=== PATIENT | female | born 2005 ===

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

== ENCOUNTER 2023-11-21 13:01 | Outpatient (REF) | payer OTHER, SELFPAY ==
[2023-11-21 16:47] LABS: Folate 9.5 ng/mL (> or = 4.0); Vitamin B12 510 pg/mL (200-900)
[2023-11-25 16:08] LABS: Vitamin D 25-OH, D2 <4 ng/mL; Vitamin D 25-OH, D3 25 ng/mL; Vitamin D 25-OH, Total 25 ng/mL (30-100)
== END 2023-11-21 13:02 | disposition home or self-care (01) ==
LOC: HO.LAB 13:01
PROVIDERS: PCP Pediatrics; Visit Provider Nurse Practitioner Family
DX: R19.7 Diarrhea, unspecified (principal); E55.9 Vitamin D deficiency, unspecified; R11.0 Nausea; R10.13 Epigastric pain; K21.9 Gastro-esophageal reflux disease without esophagitis; R63.6 Underweight
CPT/HCPCS: 36415; 82306; 82607; 82746; 99202

== ENCOUNTER 2023-11-21 13:01 | Outpatient (AMB) | payer OTHER, SELFPAY ==
--- NOTE | 2023-11-21 13:05 | MHC.OFFVIS ---
Vital Signs 11/21/23 13:09 Height 5 ft 2.5 in Weight 99 lb 3.328 oz BMI 17.9 BP 102/59 L Blood Pressure Location Lt brachial Position Sitting Pulse 72 Intake Visit Reasons: unintentional weight loss, nausea and vomiting Intake Note: Vanessa presents in the office as a new patient for weight loss and N/V. CC: N/V, Troubles with weight loss. Loss of appetite at times. No blood when she has a BM. Sometimes she has pains in her stomach - epigastric regions - state at times she will wake up with the pains. Optical Brightener Maker Helper Required: No Allergies No Known Allergies Allergy (Unverified 11/21/23 13:06) HPI HPI unintentional weight loss, nausea and vomiting : Details: 18-year-old female with no significant past medical history is here today for initial consultation. Patient has been dealing with epigastric pain and discomfort for sometimes. Seen in 2018 for epigastric pain and discomfort in the ER. Many times patient reports that her pains are worse around when she is about to get her menses. Patient's quality assurance manager did extensive workup that included transglutaminase, hormone levels, lipase, liver profile. Patient does report pain for menstruation. Patient states that she is having epigastric pain postprandially and does not have much appetite. Patient is afraid to eat to prevent her from getting pain. Patient reports that she is moving her bowels without any issues, however sometimes patient feels like she has to go to the bathroom few times a day before she empties completely. Denies any melena, hematochezia, unintentional weight loss or ribbon like stools. Patient reports dyspepsia without dysphagia or odynophagia. Review of Systems Const Denies weight gain and Reports weight loss ENT Reports no additional complaints, Denies dysphagia and Denies odynophagia Card Reports no additional complaints Resp Reports no additional complaints GI Reports abdominal pain (Epigastric), Denies belching, Denies melena, Reports bloating (Occasional), Denies change in bowel habits, Reports tenesmus, Denies dysphagia, Denies excessive flatus, Denies dyspepsia, Reports heartburn, Denies diarrhea, Denies loose stools, Reports nausea, Denies odynophagia and Denies vomiting Reports no additional complaints Musc Reports no additional complaints Neuro Reports no additional complaints Psych Reports no additional complaints Endo Reports no additional complaints Physical Exam Vital Signs: Last Vital Signs Pulse 72 11/21/23 13:09 BP 102/59 L 11/21/23 13:09 BMI result Body Mass Index 17.9 Const General: healthy appearing and no acute distress Nutritional Appearance: underweight Orientation/consciousness: patient oriented x3 Resp Effort & Inspection: normal respiratory effort, able to speak in complete sentences, no tracheal deviation and symmetric chest movement Auscultation: clear to auscultation bilaterally Cardio Rate: regular rate GI Inspection: Yes normal to inspection and No distended Palpation (GI): Soft to palpation, not firm, nontender and No hepatosplenomegaly present Auscultation: normal bowel sounds General: Yes no CVA tenderness Back/Spine/Pelvis Back: no CVA tenderness Skin General skin exam: elasticity normal, turgor normal and dry skin Neuro General: patient oriented x3 Psych Appearance: grossly normal Mental Status: mental status grossly normal Assessment & Plan Assessment & Plan (1) Nausea: Code(s): R11.0 - Nausea (2) Postprandial epigastric pain: Code(s): R10.13 - Epigastric pain (3) GERD (gastroesophageal reflux disease): Code(s): K21.9 - Gastro-esophageal reflux disease without esophagitis Qualifiers: Esophagitis presence: esophagitis presence not specified Qualified Code(s): K21.9 - Gastro-esophageal reflux disease without esophagitis (4) Underweight: Code(s): R63.6 - Underweight Plan Will start patient on omeprazole 20 mg daily. Discussed with patient avoiding dietary triggers. Eating food that is blend. Making sure that she is moving her bowels. Increase fluid intake and activity. Increase fiber intake. Patient was encouraged to try protein shakes couple times today. Preferably lactose free. Increase calorie intake and protein intake. I will see patient in 6 weeks, sooner on as needed basis. She is agreeable to this plan and verbalizes understanding of instructions. She was given the opportunity to ask questions and all questions answered. Thank you for allowing me to participate in her care Orders: Orders Vitamin B12 and Folate 11/21/23 R19.7 - Diarrhea, unspecified Vitamin D 25-OH (D2 and D3) 11/21/23 E55.9 - Vitamin D deficiency, unspecified Medications: New omeprazole 20 mg PO DAILY 30 caps 3RF K21.9 - Gastro-esophageal reflux disease without esophagitis Coding Level of Care Code New Pt Level 4 (90079) Diagnoses Nausea R11.0 Postprandial epigastric pain R10.13 Gastroesophageal reflux disease, unspecified whether esophagitis present K21.9 Esophagitis presence: esophagitis presence not specified Underweight R63.6 Time Spent (min) 45 Comment 30 minutes spent with patient and additional 15 minutes spent reviewing her records
[2023-11-21 13:09] VITALS: BP 102/59; PULSE 72; BMI 17.9
== END 2023-11-21 13:36 | disposition home or self-care (01) ==
PROVIDERS: PCP Pediatrics; Visit Provider Nurse Practitioner Family
DX: R11.0 Nausea (principal); R10.13 Epigastric pain; K21.9 Gastro-esophageal reflux disease without esophagitis; R63.6 Underweight
CPT/HCPCS: 99204

== ENCOUNTER 2024-01-02 12:55 | Outpatient (AMB) | payer OTHER, SELFPAY ==
[2024-01-02 12:59] VITALS: BP 104/64; PULSE 73; BMI 18.5
--- NOTE | 2024-01-02 12:59 | A.OFFVIS_ITS ---
Vital Signs 01/02/24 12:59 Height 5 ft 2.5 in Weight 102 lb 11.767 oz BMI 18.5 BP 104/64 Blood Pressure Location Lt brachial Position Sitting Pulse 73 Pulse Source Pulse Oximeter Intake Visit Reasons: 6 week follow up Intake Note: Vanessa returns to in office 6 weeks follow up of GERD and labs. CC: Patient states I'm doing good and denies having N/V, abdominal pain. She states she has been eating well. Denies other GI concerns today. Timber Watchman Required: No Accompanied by: Mother Allergies No Known Allergies Allergy (Verified 01/02/24 13:03) HPI HPI 6 week follow up: Details: LAST VISIT: Nausea Postprandial epigastric pain GERD (gastroesophageal reflux disease) Underweight Plan Will start patient on omeprazole 20 mg daily. Discussed with patient avoiding dietary triggers. Eating food that is blend. Making sure that she is moving her bowels. Increase fluid intake and activity. Increase fiber intake. Patient was encouraged to try protein shakes couple times today. Preferably lactose free. Increase calorie intake and protein intake. I will see patient in 6 weeks, sooner on as needed basis. She is agreeable to this plan and verbalizes understanding of instructions. She was given the opportunity to ask questions and all questions answered. ? Thank you for allowing me to participate in her care Orders Orders Vitamin B12 and Folate 11/21/23 R19.7 Vitamin D 25-OH (D2 and D3) 11/21/23 E55.9 Medications New omeprazole 20 mg PO DAILY 30 caps 3RF K21.9 TODAY'S VISIT: Patient is here today for follow-up. Patient is accompanied by her mother. Patient reports that she has been feeling well, denies any GI concerning sympt oms. Currently has good appetite. Takes omeprazole every morning and states that her symptoms are suppressed. Patient denies any nausea or vomiting. Moves her bowels without any issues. Placed on vitamin-D after last visit. Patient reports that she has been eating better. Patient gained 3 lb in the last few weeks. [facility] Surgical History No pertinent past surgical history Social History Alcohol intake: never Patient Tobacco Use Status: Never used Tobacco Use of substances other than those prescribed or required for medical reasons: No Review of Systems Const Denies weight gain and Denies weight loss ENT Reports no additional complaints, Denies dysphagia and Denies odynophagia Card Reports no additional complaints Resp Reports no additional complaints GI Denies abdominal pain, Denies belching, Denies melena, Denies bloating, Denies change in bowel habits, Denies dysphagia, Denies excessive flatus, Denies dyspepsia, Denies heartburn, Denies diarrhea, Denies loose stools, Denies nausea, Denies odynophagia and Denies vomiting Musc Reports no additional complaints Neuro Reports no additional complaints Psych Reports no additional complaints Endo Reports no additional complaints Physical Exam Vital Signs: Last Vital Signs Pulse 73 01/02/24 12:59 BP 104/64 01/02/24 12:59 BMI result Body Mass Index 18.5 Const General: healthy appearing and no acute distress Nutritional Appearance: underweight Orientation/consciousness: patient oriented x3 Resp Effort & Inspection: normal respiratory effort, able to speak in complete sentences, no tracheal deviation and symmetric chest movement Auscultation: clear to auscultation bilaterally Cardio Rate: regular rate GI Inspection: Yes normal to inspection and No distended Palpation (GI): Soft to palpation, not firm, nontender and No hepatosplenomegaly present Auscultation: normal bowel sounds General: Yes no CVA tenderness Back/Spine/Pelvis Back: no CVA tenderness Skin General skin exam: elasticity normal, turgor normal and dry skin Neuro General: patient oriented x3 Psych Appearance: grossly normal Mental Status: mental status grossly normal Results Reviewed Results Reviewed: Laboratory Tests 11/21/23 14:11 Vitamin B12 510 25-OH Vitamin D Total 25 L Folate 9.5 Assessment & Plan Assessment & Plan (1) Nausea: Code(s): R11.0 - Nausea (2) Postprandial epigastric pain: Code(s): R10.13 - Epigastric pain (3) GERD (gastroesophageal reflux disease): Code(s): K21.9 - Gastro-esophageal reflux disease without esophagitis Qualifiers: Esophagitis presence: esophagitis presence not specified Qualified Code(s): K21.9 - Gastro-esophageal reflux disease without esophagitis (4) Underweight: Code(s): R63.6 - Underweight Plan Patient can continue taking vitamin-D low-dose. May take omeprazole for another 2 months. Continue to avoid dietary triggers and late night snacking. Staying upright for minimum 3 hours after meals discussed with patient. High-calorie meals encouraged to help her gain weight. Avoid food that is fried or greasy. Patient will follow-up on as needed basis. If patient will have symptoms that will get worse she will call our office. Both patient and her mother are agreeable to plan of care and verbalizes understanding of instructions. They were given the opportunity to ask questions and all questions answered. Thank you for allowing me to participate in her care Medications: New cholecalciferol (vitamin D3) 25 mcg PO DAILY 30 caps 2RF Refilled omeprazole 20 mg PO DAILY 30 caps 1RF K21.9 - Gastro-esophageal reflux disease without esophagitis Coding Level of Care Code Est Pt Level 3 (12812) Diagnoses Nausea R11.0 Postprandial epigastric pain R10.13 Gastroesophageal reflux disease, unspecified whether esophagitis present K21.9 Esophagitis presence: esophagitis presence not specified Underweight R63.6 Time Spent (min) 25 Comment 15 minutes spent with patient and additional 10 minutes spent reviewing her records
== END 2024-01-02 13:58 | disposition home or self-care (01) ==
PROVIDERS: PCP Pediatrics; Visit Provider Nurse Practitioner Family
DX: R11.0 Nausea (principal); R10.13 Epigastric pain; K21.9 Gastro-esophageal reflux disease without esophagitis; R63.6 Underweight
CPT/HCPCS: 99213

== ENCOUNTER → 2024-01-02 12:55 | Outpatient (BNVA) | payer OTHER, SELFPAY | PROVIDERS: PCP Pediatrics; Visit Provider Nurse Practitioner Family | DX: R11.0 Nausea (principal); R10.13 Epigastric pain; K21.9 Gastro-esophageal reflux disease without esophagitis; R63.6 Underweight | CPT/HCPCS: 99212 ==

== ENCOUNTER 2025-07-03 11:30 | Emergency (ER) | payer OTHER, SELFPAY ==
[2025-07-03 11:49] VITALS: BP 105/67; PULSE 114; RESP 18; TEMP 36.7; O2SAT 99; BMI 18.1
--- NOTE | 2025-07-03 11:54 | ED.GENADULT ---
HPI - General Adult General Chief complaint: Urogenital-Female Stated complaint: ?uti Time Seen by Provider: 07/03/25 14:07 Source: patient Mode of arrival: ambulatory Limitations: no limitations History of Present Illness ED Provider: Jovana Paulino PA-C HPI narrative: Patient is a 19 year old female with no reported medical history presenting to the emergency department today with pain with urination. Patient states that over the last few days she has had pain with urination. Patient denies any vaginal discharge. Patient states that she is on her period so she is bleeding. Patient states that she has no vaginal skin changes or lesions in the vaginal area. Patient denies any other complaints at this time. Related Data Previous Rx's ?Medication ?Instructions ?Recorded omeprazole 20 mg capsule,delayed 20 mg PO DAILY #30 caps 01/02/24 release cholecalciferol (vitamin D3) 25 25 mcg PO DAILY #30 caps 05/01/24 mcg (1,000 unit) capsule cefuroxime axetil 250 mg tablet 500 mg (2 x 250 mg) PO BID 7 days 07/03/25 #28 tabs Allergies Allergy/AdvReac Type Severity Reaction Status Date / Time No Known Allergies Allergy Verified 07/03/25 11:55 Review of Systems Constitutional: Constitutional: Reports as per HPI Eyes: Eyes: Reports as per HPI ENT: Reports as per HPI Cardiovascular: Cardiovascular: Reports as per HPI Respiratory: Respiratory: Reports as per HPI Gastrointestinal: Gastrointestinal: Reports as per HPI Genitourinary: Genitourinary: Reports as per HPI Musculoskeletal: Musculoskeletal: Reports as per HPI Integumentary/Breasts: Skin/Breast: Reports as per HPI Neurologic: Reports as per HPI Psychiatric: Psychiatric: Reports as per HPI Endocrine: Endocrine: Reports as per HPI Hematologic/Lymphatic: Hematologic/Lymphatic: Reports as per HPI Allergic/Immunologic: Allergic/Immunologic: Reports as per HPI [facility] Past Medical History Attestation statement: The following information was validated with the patient. Source: old records reviewed and nursing notes reviewed Surgical History No pertinent past surgical history Social History Social History Alcohol intake: never Patient Tobacco Use Status: Never used Tobacco Advance Directives: No Advance Directives Information Provided: Yes Do you have a plan to hurt others: No Plan Physical Exam ED Vital Signs: Vital Signs - 24 hr 07/03/25 11:49 07/03/25 14:17 Temperature 98.1 F 98.1 F Pulse Rate 114 H 114 H Respiratory Rate 18 18 Blood Pressure 105/67 105/67 Pulse Oximetry 99 99 Oxygen Delivery Method Room Air Room Air BMI result Body Mass Index 18.1 Const General: cooperative, no acute distress, alert and awake Nutritional Appearance: well nourished Orientation/consciousness: patient oriented x3 HENMT Head: Yes normal to inspection and Yes atraumatic Ears: hearing grossly normal bilaterally and external ears normal General nose exam: Normal external nose present, no nasal discharge noted and no epistaxis Face and sinus: Yes normal facial exam, No abrasion and No laceration Mouth: Normal oral and palatal mucosa present, no drooling and no muffled voice Eyes General: appearance normal, both eyes and all related structures Periorbital: periorbital findings normal Eyelids: Yes eyelids normal Conjunctivae: conjunctivae normal Pupils: Equal, round and reactive pupils present EOM: EOMs intact bilaterally Neck Neck: Yes normal visual inspection and Yes full ROM Resp Effort & Inspection: normal respiratory effort and able to speak in complete sentences Neuro General: patient oriented x3, moves all extremities and CN's II-XI intact bilaterally Cranial nerves: Yes Equal, round and reactive pupils present Cognition (Neuro): normal cognition Extrem General: Yes normal to inspection, Yes full ROM and Yes capillary refill normal Psych Appearance: grossly normal Mental Status: mental status grossly normal Affect: normal affect Attitude: cooperative Thought process: Normal thought process present Thought content: Normal thought content present Insight: Good insight present (Psych) Course Course Course Narrative: This is a rapid medical exam performed by Umberto Sparrow NP: Additional HPI, ROS, PE not included below will be deferred to primary provider. Patient is a 19 y/o F presenting with complaint of dysuria for a few days. Also has her period currently. Reports flank pain but states she usually gets this with her period. Plan: labs, UA Medical Decision Making Medical Decision Making MDM Narrative: Patient is a 19 year old female with no reported medical history presenting to the emergency department today with pain with urination. Patient's physical exam was as noted in the physical exam portion of this note. Patient's blood work was unremarkable. Patient's urine showed evidence of UTI - given her symptoms, will initiate treatment. I explained my physical exam findings as well as all test results to the patient. I answered all questions asked by the patient. I stressed the importance of the patient taking her medication as directed (either prescribed or as the over the counter packaging recommends). I stressed the importance of the patient following up with her primary care provider. I stressed the importance of the patient returning to the emergency department immediately if her symptoms were to worsen or if she were to develop any dizziness, shortness of breath, difficulty breathing, chest pain, blurry vision, loss of vision, nausea, vomiting, abdominal pain, fever, chills, back pain, or any other complaints. Patient verbalized agreement and understanding with this treatment plan and discharge. Differential Diagnosis Differential Diagnoses: The differential diagnosis associated with the presentation includes UTI Dysuria Admission/Observation Consideration of admission/observation: Escalation of care including admission/observation considered Patient would have been admitted to the hospital had her work up had any findings where hospital admission was appropriate and her clinical presentation warranted hospital admission. Lab Data [facility] Lab Attestation statement: I reviewed the patient's lab results. My interpretation of these results are in the [facility] Rationale portion of this note. 07/03/25 12:01 07/03/25 12:01 Labs: Lab Results 07/03/25 Range/Units 12:01 WBC 11.1 H (4.8-10.8) X10*3/uL RBC 4.44 (4.20-5.50) X10*6/uL Hgb 13.9 (12.0-16.0) g/dl Hct 40.5 (37.0-47.0) % MCV 91.2 (80.0-98.0) fL MCH 31.3 (27.0-33.0) pg MCHC 34.3 (31.0-35.0) g/dl RDW 12.1 (11.0-16.0) % Plt Count 290 (160-400) X10*3/uL MPV 9.4 (9.4-12.3) fL Immature Gran % (Auto) 0.3 (0.0-0.4) % Neut % (Auto) 84.2 H (45-73) % Lymph % (Auto) 9.9 L (20-40) % [place] % (Auto) 5.1 (2-11) % Eos % (Auto) 0.3 (0-4) % Baso % (Auto) 0.2 (0-2) % Lymph # (Auto) 1.1 L (1.2-4.9) X10*3/uL [place] # (Auto) 0.6 (0.1-1.2) X10*3/uL Eos # (Auto) 0.0 (0.0-0.4) X10*3/uL Baso # (Auto) 0.0 (0.0-0.2) X10*3/uL Abs Immat Gran (auto) 0.03 (0.00-0.03) X10*3/uL Absolute Neuts (auto) 9.4 H (2.0-8.3) x10*3/uL Absolute Nucleated RBC 0.000 (0.0-0.012) X10*3/uL Nucleated RBC % (auto) 0.0 (0.0-0.2) /100WBC Sodium 139 (135-145) mmol/L Potassium 3.6 (3.3-5.1) mmol/L Chloride 107 (96-108) mmol/L Carbon Dioxide 24 (22-29) mmol/L Anion Gap 12 (12-20) BUN 10 (9-16) mg/dL Creatinine 0.72 (0.5-1.4) mg/dL Estim Creat Clear Calc 90.3 Estimated GFR > 60 Random Glucose 102 (60-115) mg/dL Calcium 9.4 (8.4-10.2) mg/dL Total Bilirubin 1.6 H (0.0-1.0) mg/dL AST 24 (5-31) U/L ALT 15 (0-31) U/L Alkaline Phosphatase 64 (39-117) U/L Total Protein 7.5 (6.5-8.0) g/dL Albumin 4.9 (3.5-5.0) g/dL Beta HCG, Quant < 2 mIU/mL Urine Color Light brown Urine Appearance Turbid Urine pH 6.0 (5.0-9.0) Ur Specific [place] 1.025 (1.005-1.025) Urine Protein 300 (3+) H (Neg-Trace) mg/dL Urine Glucose (UA) Negative (Negative) mg/dL Urine Ketones Negative (Negative) mg/dL Urine Blood Large (3+) H (Negative) Urine Nitrite Negative (Negative) Ur Leukocyte Esterase Moderate (2+) H (Negative) Urine RBC >20 H (0-2) /HPF Urine WBC >50 H (0-5) /HPF Ur Squamous Epith Cells 0-2 (0-2) /HPF Urine Bacteria Trace (None Seen) Hyaline Casts 3-5 (0-2) /LPF Prescription Management I considered prescription management with: Antibiotic (patient prescribed an antibiotic for UTI) Discharge Plan Discharge Clinical Impression: Urinary tract infection Patient Disposition: Home, Self-Care Instructions: Urinary Tract Infection in Women (DC) Additional Instructions: Your urine appears to be infected. Take your antibiotic as prescribed. IF you are prescribed home medications and/or you are taking over the counter medications at home - it is very important you continue to do so as prescribed / directed unless told otherwise by a healthcare provider. Follow up with your primary care provider. Do your best to stay well hydrated and rest. Return to the emergency department immediately if your symptoms worsen or if you develop any numbness, tingling, dizziness, shortness of breath, difficulty breathing, chest pain, blurry vision, loss of vision, nausea, vomiting, abdominal pain, fever, chills, back pain, or any other complaints. If you do not have a primary care provider - call any of the below numbers to establish and follow up with a primary care provider. [facility] [place] Primary Care ([place]) [phone] [place] [address], [address] [facility] [place] Primary Care ([address] [place]) [phone] [place] [address], [address] [facility], [address] [facility] [place] Primary Care ([address] [place]) [phone] [place] [address], [address] [facility], [address] [facility] [place] Primary Care ([place]) [phone] [place] [address] 2 [facility], [address] [facility] [place] Family Medicine [phone] [address] [facility], [address] Please see the information below about our Patient Portal. If you are not yet enrolled in the [facility] Patient Portal, you will receive an enrollment email invitation following your visit to any [facility] [place] [place] care setting. You may also self-enroll in the Patient Portal by visiting our website: [email or web address] The following information is required to access the Patient Portal: - Your [facility] [place] [place] Medical Record Number - Your personal home email address (must match what is in your electronic medical record, Registration staff can assist with this) - Name - Date of Capabilities of the Patient Portal: - Message some providers - View upcoming appointments - Access your health summary, medical history, and visit history - View current conditions and allergies - View procedure and lab results - View your medications, including guidelines, side effects, and precautions - Complete pre-appointment questionnaires requested by your provider - Ready summary reports of your office visits and procedures To access the Patient Portal Mobile [employer], follow these directions: - Search [employer] in the [employer] Store or [employer] Store - Download the [employer]rie - Search for [facility] - Enter your login/password Prescriptions: New cefuroxime axetil 250 mg tablet 500 mg PO BID 7 Days Qty: 28 0RF No Action cholecalciferol (vitamin D3) 25 mcg (1,000 unit) capsule 25 mcg PO DAILY Qty: 30 2RF omeprazole 20 mg capsule,delayed release(DR/EC) 20 mg PO DAILY Qty: 30 1RF Interventions: ED Discharge Assessment Last Done: 07/03/25 14:17 Discharge Date/Time: 07/03/25 14:17 Print Language: Maori
[2025-07-03 12:11] LABS: MANUAL DIFF FLAG NO
[2025-07-03 12:15] LABS: Appearance Urine Turbid; Glucose Urine UA Negative (Negative); PH 6.0 (5.0-9.0); Specific Gravity - Urine 1.025 (1.005-1.025); UMIC TRIGGER UACC YES
[2025-07-03 12:17] LABS: Hematocrit 40.5 % (37.0-47.0); Hemoglobin 13.9 g/dl (12.0-16.0); Imm Gran Abs Auto 0.03 X10*3/uL (0.00-0.03); Imm Gran Pct Auto 0.3 % (0.0-0.4); Lymphocytes Absolute Auto 1.1 X10*3/uL (1.2-4.9); Mean Corpuscular HGB Conc 34.3 g/dl (31.0-35.0); Mean Corpuscular Hemoglobin 31.3 pg (27.0-33.0); Mean Corpuscular Volume 91.2 fL (80.0-98.0); NRBC Abs Auto 0.000 X10*3/uL (0.0-0.012); NRBC Pct Auto 0.0 /100WBC (0.0-0.2); Platelet Count 290 X10*3/uL (160-400); Red Blood Count 4.44 X10*6/uL (4.20-5.50); UACC Culture Trigger YES; White Blood Count 11.1 X10*3/uL (4.8-10.8)
[2025-07-03 12:36] LABS: Alanine Aminotransferase 15 U/L (0-31); Albumin Level 4.9 g/dL (3.5-5.0); Alkaline Phosphatase 64 U/L (39-117); Anion Gap 12 (12-20); Aspartate Amino Transferase 24 U/L (5-31); Blood Urea Nitrogen 10 mg/dL (9-16); Calcium 9.4 mg/dL (8.4-10.2); Carbon Dioxide 24 mmol/L (22-29); Chloride 107 mmol/L (96-108); Creatinine Clr Calc Pharmacy 90.3; Estimated Glomerular Filt Rate > 60; Potassium 3.6 mmol/L (3.3-5.1); Sodium 139 mmol/L (135-145); Total Protein 7.5 g/dL (6.5-8.0)
[2025-07-03 14:17] VITALS: BP 105/67; PULSE 114; RESP 18; TEMP 36.7; O2SAT 99
--- OUTSIDE RECORDS SUMMARY | 2025-07-03 18:56 | XMS_ITS | Encounter Summary ---
Author Organization [facility] Address [address] [place] [address] Phone Care Team Providers Care Comb Tender Name Role Phone Gisselle Valente MD Primary Care Provider Encounter Details Date Type Department Care Team (Late st Contact Info) Description 03/21/[address] [facility] [place] Family Medicine [address] [place] [address] Family Medicine, Physician [address] [place], [place] [id number] Social History Tobacco Use Types Packs/Day Years Used Date Smoking Tobacco: Never Assessed Comments Unknown Sex and Gender Information Value Date Recorded Sex Assigned at Female 06/06/2023 1:46 PM EST Legal Sex Female 5:14 PM EDT Gender Identity Female 06/04/2020 8:01 AM EST Sexual Orientation Straight 06/06/2023 1: 46 PM EST documented as of this encounter Plan of Treatment Not on file documented as of this encounter Visit Diagnoses Not on filedocumented in this encounter Care Teams Comb Tender Relationship Specialty Start Date End Date Gisselle Valente MD [address] [place] [id number] PCP - General 02/25/17 07/29/24 documented as of this encounter
--- OUTSIDE RECORDS SUMMARY | 2025-07-03 18:56 | XMS_ITS | Encounter Summary ---
Author Organization [facility] Address [address] [place] [address] Phone Care Team Providers Care Vendor Manager Name Role Phone Gisselle Valente MD Primary Care Provider [phone] Encounter Details Date Type Department Care Team (Late st Contact Info) Description 09/23/2016 Documentation [facility] [place] Family Medicine [address] [place] [address] Family Medicine, Physician [address], [place] [address] Social History Tobacco Use Types Packs/Day Years [...] on filedocumented in this encounter Care Teams Vendor Manager Relationship Specialty Start Date End Date Gisselle Valente MD [address] [place] [id number] PCP - General 02/25/17 07/29/24 documented as of this encounter
--- OUTSIDE RECORDS SUMMARY | 2025-07-03 18:56 | XMS_ITS | Encounter Summary ---
Author Organization [facility] Address [address] [place] [address] Phone Care Team Providers Care Wood Coater Name Role Phone Gisselle Valente MD Primary Care Provider Encounter Details Date Type Department Care Team (Late st Contact Info) Description 03/21/2014 Documentation [facility] [place] [address] [place] [address] Family Medicine, Physician [address] [place], [place] [phone] Social History Tobacco Use Types Packs/Day Years [...] on filedocumented in this encounter Care Teams Wood Coater Relationship Specialty Start Date End Date Gisselle Valente MD [address] [place] [id number] PCP - General 02/25/17 07/29/24 documented as of this encounter
--- OUTSIDE RECORDS SUMMARY | 2025-07-03 18:56 | XMS_ITS | Clinical Summary ---
Author Organization [facility] [address] [facility] Address [address] [place], [place] Phone Care Team Providers Care Pca Name Role Phone Mahendra Poole MD Primary Care Provider Social History Tobacco Use Types Packs/Day Years Used Date Smoking Tobacco: Never Assessed Comments Unknown Sex and Gender Information Value Date Recorded Sex Assigned at Not on file Legal Sex Female 1:49 PM EDT Gender Identity Not on file Sexual Orientation Not on file Plan of Treatment Upcoming Encounters Date Type Department Care Team (Late st Contact Info) Description 12/20/2025 11:30 AM EDT Office Visit Adult Medicine [facility] [address], [place] [phone] Marsha Casillas PA [address], [place] Health Maintenance Due Date Last Done Comments Gonorrhea/Chlamydia Screening 2003 HPV Vaccines (1 - 3-dose series) 2018 Meningococcal B Vaccine (1 o f 2 - Standard) 2019 DTaP,Tdap,and Td Vaccines (1 - Tdap) 2022 Hepatitis B Vaccines (1 of 3 - 19+ 3-dose series) 2022 Cervical Cancer Screening: P ap Smear 2024 Depression Screening 07/18/2024 COVID-19 Vaccine (1 - 2024-2 6 season) 2025 Influenza Vaccine (#1) 2025 Annual Well Child Visit (3-2 1 years old) 04/17/2025 HIV Screening 04/17/2025 Hepatitis C Screening 04/17/2025 Social Influencers of Health Screening 04/17/2025 RSV Immunization Adult Patie nts (1 - 1-dose 75+ series) 2078 HIB Vaccines Aged Out No longer eligi ble based on patient's age to complete this topic Hepatitis A Vaccines Aged Out No long er eligible based on patient's age to complete this topic IPV Vaccines Aged Out No longer eligi ble based on patient's age to complete this topic MMR Vaccines Aged Out No longer eligi ble based on patient's age to complete this topic Meningococcal ACWY Vaccine Aged Out N o longer eligible based on patient's age to complete this topic Pneumococcal Vaccine: Pediat rics (0 to 5 Years) and At-Risk Patients (6 to 49 Years) Aged Out No longer eligible b ased on patient's age to complete this topic RSV Immunization Patients Un catracho 20 months Aged Out No longer eligible b ased on patient's age to complete this topic Varicella Vaccines Aged Out No longer eligible based on patient's age to complete this topic Insurance [employer] Care Teams Pca Relationship Specialty Start Date End Date Mahendra Poole MD [address] [place] [phone] PCP - General Internal Medicine 04/17/25
--- OUTSIDE RECORDS SUMMARY | 2025-07-03 18:56 | XMS_ITS | Clinical Summary ---
Author Organization [facility] Address [address] [place] [phone] Phone Care Team Providers Care Automobile Tire Builder Name Role Phone Unavailable Primary Care Provider Unavailabl e Allergies No known active allergies Medications No known medications Active Problems Problem Noted Date Diagnosed Date Gastroesophageal reflux disease without esophagi tis 01/24/2024 Overview (01/24/2024): Referred to GI with abd pain and weight loss. Was put on Omeprazole. Improved. COVID-19 vaccination declined 08/28/2021 Overview (08/28/2021): 08/2021. Assessment & Plan (08/28/2021 11:24 AM EST): Discussed extensively and offered comfort plan. Refused influenza vaccine 04/24/2019 Overview (08/28/2021): Got when mandated in 2019. Refused again 09/08. Assessment & Plan (08/28/2021 11:24 AM EST): Strongly encouraged the influenza vaccine to help prevent influenza personally, & in the community, especially in light of concurrent coronavirus pandemic Family/patient still declined today They will call if they decide to get it Attention deficit hyperactivity disorder (ADHD) 06/28/2017 Overview (11/08/2023): Doing well on Concerta 18 mg in am - discontinued by patient in 2021 - decided to manage on her own and has been doing fine Assessment & Plan (08/28/2021 11:21 AM EST): Doing well on Concerta 18 mg qAM, has follow up with Dr. Valente in September 2021. Dyslexia 06/28/2017 Overview (04/24/2019): Has an IEP Assessment & Plan (08/28/2021 11:21 AM EST): Has IEP. 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 09/24/2021 11/08/2023 Need for case management follow-up 07/24/2020 08/28/2021 Overview (07/24/2020): STD screen not done due to national shortage of tests Immunizations Immunization Administration Dates Next Due DTaP 5 05/03/2008, 5,01/13/2004,11/05,2003 HPV Vaccine 9 Valent 09/08/2016,04/28/2016,02/10 Hep A, ped/adol 12/11/2014,12/05/2013 Hep B, ped/adol 04/13/2004,01/13/2004,2003 Hib (HbOC) 01/13/2004 Hib (PRP-T) 10/09/2004,2003,2003 IPV 05/03/2008, 4,2003,09/16 Influenza, injectable, quadr ivalent, preservative free 06/05/2020 Influenza, injectable, trivalent 07/13/2005,06/18 MMR 05/03/2008,07/07/2004 Meningococcal Conj (Menactra) MCV4P 06/05/2020,0 12/11/2014 Pneumococcal Conjugate 10/09/2004,2003,2003,09/16 Tdap 12/11/2014 Varicella 05/03/2008,07/07/2004 Family History Medical History Relation Name Comments Asthma Maternal Grandmother Diabetes Maternal Grandmother Asthma Paternal Grandmother Diabetes Paternal Grandmother Relation Name Status Comments Father Man Alive Maternal Grandmother Mother Marcella Carias Alive Other 1 uncle's: Obesit y Other 2 grandmother's: Diabetes mellitus, Asthma Other 3 grandmother's: Diabetes mellitus, Asthma Other 4 grandfather: Ob esity Paternal Grandmother Sister Alive Social History Tobacco Use Types Packs/Day Years Used Date Smoking Tobacco: Never Smokeless Tobacco: Never Hunger/Food Answer Date Recorded In the last 12 months, did y ou or your family ever eat less than you felt you should because there wasn't enough money for food? No 06/06/2023 Stable Housing Answer Date Recorded Are you worried that in the next 2 months you may not have stable housing? No 06/06/2023 Transportation Concerns Answer Date Rec orded In the last 12 months, have you or your family ever had to go without healthcare because you didn't have a way to get there? No 06/06/2023 Hazards in Home Answer Date Recorded Think about the place you li ve. Do you have problems with any of the following? Pests (mice or roaches), mold, no/not working smoke detectors, water leaks, no window guards. No 2022 Financing Utilities Answer Date Recorde d In the last 12 months, has t he electric, gas, oil, or water company threatened to shut off your services in your home? No 06/06/2023 Safety at Home Answer Date Recorded Are you or your family worried about feeling saf e in your home? No 06/06/2023 Outside Support Answer Date Recorded Do you feel that you need mo re support from other people or programs to help you care for yourself or your family? No 06/06/2023 Understanding Health Concerns Answer Da te Recorded Do you need help understandi ng your or your child's healthcare needs (diagnosis, medications, plan, etc.)? No 06/06/2023 Financing Health Concerns Answer Date R ecorded In the last 12 months, was t here a time when your child needed to see a doctor or get medications or supplies but could not because of cost? No 06/06/2023 Missing School or Work Answer Date Yan rded Did you or your child miss s chool or work because of a health problem that could have been avoided? No 06/06/2023 Comments No Sex and Gender Information Value Date Recorded Sex Assigned at Female 06/06/2023 1:46 PM EST Legal Sex Female 5:14 PM EDT Gender Identity Female 06/04/2020 8:01 AM EST Sexual Orientation Straight 06/06/2023 1: 46 PM EST Last Filed Vital Signs Vital Sign Reading Time Taken Comments Blood Pressure 114/72 06/06/2023 1:23 PM EST Pulse 83 06/06/2023 1:23 PM EST Temperature 36.2 C (97.1 F) 11/08/2023 8:58 AM EDT Respiratory Rate - - Oxygen Saturation - - Inhaled Oxygen Concentration - - Weight 45.1 kg (99 lb 6.4 oz) 11/08/2023 8:58 AM EDT Height 158.8 cm (5' 2.5 ) 11/08/2023 8:58 AM EDT Body Mass Index 17.89 11/08/2023 8:58 AM EDT Plan of Treatment Health Maintenance Due Date Last Done Comments Men B Vaccine (1 of 2 - Standard) 2019 DTaP,Tdap,and Td Vaccines (7 - Td or Tdap) 12/11/2024 12/11/2014, 05/03/2008, 01/06/2005, Additional history exists Influenza Vaccines (#1) 2025 06/05/20 20, 07/13/2005, 07/07/2004 COVID-19 Vaccine ( - 2024-2 6 season) 2025 Hepatitis B Vaccines Completed 04/13/2004, 01/13/2004, 2003 HIB Vaccines Completed 10/09/2004, 12/17, 2003, Additional history exists Pneumococcal Vaccine Completed 10/09/2004, 04/13/2004, 2003, Additional history exists IPV Vaccines Completed 05/03/2008, 03/19, 2003, Additional history exists MMR Vaccines Completed 05/03/2008, 07/07/2004 Varicella Vaccines Completed 05/03/2008, 07/07/2004 Hepatitis A Vaccines Completed 12/11/2014, 12/06/19 14 HPV Vaccines Completed 09/08/2016, 04/17, 02/11/2016 Meningococcal Vaccine Completed 06/05/2020, 015 Procedures * Due to [place] state law, this organization might not be sharing sensitive test results. Procedure Name Priority Date/Time Associated Diagnosis Comments CHLAMYDIA AND GONORRHEA, AMPLIFIED Routine 06/06/2023 2:40 PM EST Screening examination for bacterial and spirochetal disease from Last 3 Months or Most Recently Relevant to Health Maintenance Results * Due to [facility] law, this organization might not be sharing sensitive test results. * Chlamydia and Gonorrhea, Amplified (06/06/2023 2:40 PM EST) Chlamydia Trachomatis, DNA Probe NEGATIVE (NEG) [facility] Comment: No Chlamydia Trachomatis RNA detected in this patient's sample (REFERENCE RANGE/NORMAL VALUE: NOT DETECTED) Note: This test uses flame hardener- mediated amplification method to detect rRNA from C. Trachomatis URINE GC AMP PROBE NEGATIVE (NEG) [facility] Comment: No Neisseria Gonorrhoeae RNA detected in this patient's sample (REFERENCE RANGE/NORMAL VALUE: NOT DETECTED) NOTE: This test uses flame hardener-mediated amplification method to detect rRNA from N.Gonorrhoeae. A negative result does not preclude infection. In the case of a negative urine result, testing of an endocervical(female) or urethral (male) specimen is recommended if there is high clinical suspicion of infection. Due to very high sensitivity of Nucleic Acid Amplification Test, false positive results may occur. Therefore, specimen handling is extremely important. In patients in whom the disease is unlikely, additional sample for testing should be considered after an initial positive result. The performance characteristics of this test have not been evaluated in children. The Aptima Combo2 assay is not intended for the evaluation of suspected sexual abuse or for other medico-legal indications. The ordering provider should assess if the patient had consensual sex without risk of sexual abuse. Consult the [facility] if needed. Contact phone number . Therapeutic failure or success cannot be determined with the Aptima Combo2 assay since nucleic acid may persist following appropriate antimicrobial therapy. The Centers for Disease Control and Prevention (CDC) recommends confirmatory retesting using culture or a different nucleic acid amplification test when positive results occur, if indicated. Testing performed or reported by [facility], a Service of [facility], [facility] [place] [address] Fantasma Solis MD, It Software Developer [facility]# [id number] Urine (Urine) 06/06/2023 2:4 0 PM EST 06/06/2023 2:46 PM EST us Gisselle Valente MD LAB MICROBIOLOGY - GENERAL ORDERABLES Final Result [facility] from Last 3 Months or Most Recently Relevant to Health Maintenance
--- OUTSIDE RECORDS SUMMARY | 2025-07-03 18:56 | XMS_ITS | Encounter Summary ---
Author Organization [facility] Address [address] [place] [address] Phone Care Team Providers Care Manager Aerospace Name Role Phone Gisselle Valente MD Primary Care Provider Encounter Details Date Type Department Care Team (Late st Contact Info) Description 04/13/2010 Documentation [facility] [place] Family Medicine [address] [place] [address] Family Medicine, Physician [address], [place] [address] Social History Tobacco Use Types Packs/Day Years [...] on filedocumented in this encounter Care Teams Manager Aerospace Relationship Specialty Start Date End Date Gisselle Valente MD [address] [place] [id number] PCP - General 02/25/17 07/29/24 documented as of this encounter
--- OUTSIDE RECORDS SUMMARY | 2025-07-03 18:56 | XMS_ITS | Encounter Summary ---
Author Organization [facility] Address [address] [place] [address] Phone Care Team Providers Care Fur Stretcher Name Role Phone Gisselle Valente MD Primary Care Provider [phone] Encounter Details Date Type Department Care Team (Late st Contact Info) Description 09/23/2016 Documentation [place] [facility] [address] [place] [address] Family Medicine, Physician [address], [place] [phone] Social History Tobacco Use Types Packs/Day Years [...] on filedocumented in this encounter Care Teams Fur Stretcher Relationship Specialty Start Date End Date Gisselle Valente MD [address] [place] [id number] PCP - General 02/25/17 07/29/24 documented as of this encounter
--- OUTSIDE RECORDS SUMMARY | 2025-07-03 18:56 | XMS_ITS | Encounter Summary ---
Author Organization [facility] Address [address] [place] [address] Phone Care Team Providers Care Cone Baker Machine Name Role Phone Gisselle Valente MD Primary Care Provider Encounter Details Date Type Department Care Team (Late st Contact Info) Description 09/23/2016 Documentation [facility] [place] [address] [place] [address] Family Medicine, Physician [address] [place] [place], [place] [phone] Social History Tobacco Use Types Packs/Day Years [...] on filedocumented in this encounter Care Teams [employer] Machine Relationship Specialty Start Date End Date Gisselel Valente MD [address] [place] [phone] PCP - General 02/25/17 07/29/24 documented as of this encounter
--- OUTSIDE RECORDS SUMMARY | 2025-07-03 18:56 | XMS_ITS | Encounter Summary ---
Author Organization [facility] Address [address] [place] [address] Phone Care Team Providers Care Relish Maker Name Role Phone Gisselle Valente MD Primary Care Provider [phone] Encounter Details Date Type Department Care Team (Late st Contact Info) Description 03/03/2017 Conversion Encounter [facility] [place] [address] [place], [place] [phone] Social History Tobacco Use Types Packs/Day Years [...] on filedocumented in this encounter Care Teams Relish Maker Relationship Specialty Start Date End Date Gisselle Valente MD [address] [place] [address] PCP - General 02/25/17 07/29/24 documented as of this encounter
--- OUTSIDE RECORDS SUMMARY | 2025-07-03 18:56 | XMS_ITS | Encounter Summary ---
Author Organization [facility] Address [address] [place] [address] Phone Care Team Providers Care Quilting Supervisor Name Role Phone Gisselle Valente MD Primary Care Provider Encounter Details Date Type Department Care Team (Late st Contact Info) Description 03/21/2014 Documentation [facility] [place] Family Medicine [address] [place] [address] Family Medicine, Physician [address], [place] [phone] Social History Tobacco Use Types Packs/Day Years [...] on filedocumented in this encounter Care Teams Quilting Supervisor Relationship Specialty Start Date End Date Gisselle Valente MD [address] [place] [phone] PCP - General 02/25/17 07/29/24 documented as of this encounter
== END 2025-07-03 14:17 | disposition home or self-care (01) ==
PROVIDERS: Registered Nurse Emergency; Emergency Provider Emergency Medicine Emergency Medical Services
DX: N39.0 Urinary tract infection, site not specified (principal); R30.9 Painful micturition, unspecified
CPT/HCPCS: 36415; 80053; 81001; 84702; 85025; 87086; 87088; 87186; 99282; 99283